=== PATIENT | male | born 1975 | race Two or more races ===

== ENCOUNTER → 2016-05-08 | Day surgery (SDC) | payer OTHER ==
[~2016-05-08] MED LIST: ACTOS PO; ASPIRIN EC81 M1 PO; ATARAX PO; ATIVAN0.5 MG PO; AZITHROMYCIN250 MG PO; BENZTROPINE MESY2 MG PO; BUDEPRION SR100 M1 PO; BUDEPRION SR100 MG PO; CINNAMON ALPHA1 EACH PO; CINNAMON PO; CLOZAPINE ODT100 MG PO; CLOZAPINE200 MG PO; COGENTIN2 MG PO; COLACE PO; COLCRYS0.6 M2 PO; COQ-1010 MG PO; COQ-1030 MG PO; CORICIDIN COUGH1 TAB PO; DEBROX OTIC DRO15 ML AD; FLEXERIL PO; FLOMAX0.4 M1 PO; FLONASE 0.05% N16 G1; GLUCOTROL PO; GLYCOPYRROLATE2 MG PO; HALDOL PO; IBUPROFEN800 MG PO; INDOMETHACIN25 MG PO; KEFLEX500 MG PO; LINZESS145 MCG PO; LIPITOR20 MG PO; LIPITOR40 MG PO; LISINOPRIL10 MG PO; LISINOPRIL2.5 MG PO; LISINOPRIL5 MG PO; LORAZEPAM0.5 MG PO; LORAZEPAM1 MG PO; MEN'S ONE DAILY1 TA1 PO; METFORMIN PO; MILK THISTLE200 M1 PO; MILK THISTLE500 MG PO; MULTI VITAMIN1 EACH PO; MULTIPLE VITAMI1 T13 PO; NAPROSYN500 MG PO; NAPROXEN250 MG PO; PREDNISONE10 MG PO; PRILOSEC PO; PRINIVIL40 MG PO; PROAIR HFA8.5 GM IH; RAPAFLO8 MG PO; TANSULOSIN PO; TOPAMAX50 MG PO; TRAMADOL HCL50 M1 PO; TUMS500 M1 PO; VITAMIN D35000 UNIT PO; WELLBUTRIN-SR100 M1 PO; WELLBUTRIN100 MG PO
--- NOTE | ~2016-05-08 | ECT ---
Unit #: [id number] #: [id number] Patient: TERESA PETERSON [id number] [place] [address] [id number] O MR#: [id number] NAME: TERESA PETERSON ROOM: Age: 40 Sex: M Admission Date: 05/08/2016 : 1975 Discharge Date: Attending Physician: Mark Davis M.D. Primary Care Physician: Higinio Woo M.D. ECT NOTE DATE OF TREATMENT 05/08/2016 TREATMENT NUMBER 113, maintenance TREATMENT MODALITY Unilateral ECT ANESTHESIA Glycopyrrolate: 0.2 mg Brevital: 150 mg Succinylcholine: 100 mg TREATMENT PARAMETERS Charge: 288 millicoulombs Pulse Width: 1.0 milliseconds Frequency: 40 Hertz Duration: 4.5 seconds Current: 800 milliamps TREATMENT DELIVERED Energy: 64.4 joules Impedance: 268 ohms Charge: 288 millicoulombs SEIZURE MEASURES OMS: 30 seconds EE seconds COMPLICATIONS None. SUMMARY The patient had a good seizure with both OMS and EEG measures. Depression and psychosis seem to be pretty well controlled continuing his ECT's at every 2 weeks and will bring him back in 2 weeks for his next maintenance ECT. DIFFERENTIAL DIAGNOSES AXIS I: F20.0. AXIS II: Deferred. AXIS III: Nothing acute. Unit #: [id number] #: [id number] Patient: TERESA PETERSON Dictated by... Kareem Ordoñez/kishor TD: 05/08/2016 18:29 JOB #: [id number] ECT NOTE X Mark Davis MD <ELECTRONICALLY SIGNED> 11/03/16 1702 X ECT
== END | disposition home or self-care (01) ==
LOC: CSUR 07:57
DX: F20.0 Paranoid schizophrenia (principal); F32.9 Major depressive disorder, single episode, unspecified; K21.9 Gastro-esophageal reflux disease without esophagitis; E11.9 Type 2 diabetes mellitus without complications; Z79.84 Long term (current) use of oral hypoglycemic drugs; M54.5 Low back pain; K31.84 Gastroparesis; G47.30 Sleep apnea, unspecified; N40.0 Benign prostatic hyperplasia without lower urinary tract symptoms; E66.9 Obesity, unspecified; Z68.38 Body mass index [BMI] 38.0-38.9, adult; F17.200 Nicotine dependence, unspecified, uncomplicated; Z87.09 Personal history of other diseases of the respiratory system; Z88.2 Allergy status to sulfonamides
CPT/HCPCS: 82947; 90870

== ENCOUNTER → 2016-05-22 | Day surgery (SDC) | payer OTHER ==
--- NOTE | ~2016-05-22 | ECT ---
Unit #: [id number] #: [id number] Patient: TERESA PETERSON [id number] [place] [address] [id number] O MR#: [id number] NAME: TERESA PETERSON ROOM: Age: 40 Sex: M Admission Date: 05/22/2016 : 1975 Discharge Date: Attending Physician: Mark Davis M.D. Primary Care Physician: Higinio Woo M.D. ECT NOTE DATE OF TREATMENT 05/22/2016 TREATMENT NUMBER 114, maintenance TREATMENT MODALITY Unilateral ECT ANESTHESIA Glycopyrrolate: 0.2 mg Brevital: 150 mg Succinylcholine: 100 mg TREATMENT PARAMETERS Charge: 288 millicoulombs Pulse Width: 1.0 milliseconds Frequency: 40 Hertz Duration: 4.5 seconds Current: 800 milliamps TREATMENT DELIVERED Energy: 58.3 joules Impedance: 242 ohms Charge: 288 millicoulombs SEIZURE MEASURES OMS: 31 seconds EE seconds COMPLICATIONS None. SUMMARY The patient had a good seizure with OMS and EEG measures. Depression and psychosis seem to be pretty well maintained and managed with his maintenance ECT's being every 2 weeks. I will continue his next ECT in 2 weeks. DIFFERENTIAL DIAGNOSES AXIS I: F20.0. AXIS II: Deferred. AXIS III: Nothing acute. Unit #: [id number] #: [id number] Patient: TERESA PETERSON Dictated by... Kareem Ordoñez/kishor TD: 05/23/2016 14:04 JOB #: [id number] ECT NOTE X Mark Davis MD <ELECTRONICALLY SIGNED> 11/03/16 1702 X ECT
== END | disposition home or self-care (01) ==
LOC: CSUR 08:19
DX: F20.0 Paranoid schizophrenia (principal); F32.9 Major depressive disorder, single episode, unspecified; K21.9 Gastro-esophageal reflux disease without esophagitis; E11.9 Type 2 diabetes mellitus without complications; Z79.84 Long term (current) use of oral hypoglycemic drugs; K31.89 Other diseases of stomach and duodenum; I10 Essential (primary) hypertension; F17.200 Nicotine dependence, unspecified, uncomplicated; M54.5 Low back pain; E66.9 Obesity, unspecified; Z79.899 Other long term (current) drug therapy; Z88.2 Allergy status to sulfonamides
CPT/HCPCS: 82947; 90870

== ENCOUNTER → 2016-06-05 | Day surgery (SDC) | payer OTHER ==
--- NOTE | ~2016-06-05 | ECT ---
Unit #: [id number] #: [id number] Patient: TERESA PETERSON [id number] [place] [address] [id number] O MR#: [id number] NAME: TERESA PETERSON ROOM: Age: 40 Sex: M Admission Date: 06/05/2016 : 1975 Discharge Date: Attending Physician: Mark Davis M.D. Primary Care Physician: No Primary Care Physician ECT NOTE DATE OF TREATMENT 06/05/2016 TREATMENT NUMBER 115, maintenance. TREATMENT MODALITY Unilateral ECT. ANESTHESIA Glycopyrrolate: 0.2 mg Brevital: 150 mg Succinylcholine: 100 mg TREATMENT PARAMETERS Charge: 288 millicoulombs Pulse Width: 1.0 milliseconds Frequency: 40 Hertz Duration: 4.5 seconds Current: 800 milliamps TREATMENT DELIVERED Energy: 68.1 joules Impedance: 287 ohms Charge: 288 millicoulombs SEIZURE MEASURES OMS: 32 seconds EE seconds COMPLICATIONS None. SUMMARY The patient had a good seizure with OMS and EEG measures. Psychosis and depression seem to be pretty well maintained and controlled with his ECT treatments being every two weeks. We will continue his schedule at that rate and he will follow up with me in my outpatient clinic for medication management. DIFFERENTIAL DIAGNOSES AXIS I: F20.0 Unit #: [id number] #: [id number] Patient: TERESA PETERSON AXIS II: Deferred. AXIS III: Nothing acute. Dictated by... Mark Davis M.D. NAHEED/gavino TD: 06/05/2016 13:57 JOB #: [id number] ECT NOTE Page 1 of 1 X Mark Davis MD <ELECTRONICALLY SIGNED> 11/03/16 1702 X ECT
== END | disposition home or self-care (01) ==
LOC: CSUR 07:47
DX: F20.0 Paranoid schizophrenia (principal); K21.9 Gastro-esophageal reflux disease without esophagitis; I10 Essential (primary) hypertension; E66.9 Obesity, unspecified; Z68.37 Body mass index [BMI] 37.0-37.9, adult; N40.0 Benign prostatic hyperplasia without lower urinary tract symptoms; E11.9 Type 2 diabetes mellitus without complications; Z79.84 Long term (current) use of oral hypoglycemic drugs; K31.84 Gastroparesis; F17.200 Nicotine dependence, unspecified, uncomplicated; Z79.899 Other long term (current) drug therapy; M54.5 Low back pain; Z87.09 Personal history of other diseases of the respiratory system; Z88.2 Allergy status to sulfonamides
CPT/HCPCS: 82947; 90870; J0330

== ENCOUNTER → 2016-06-19 | Day surgery (SDC) | payer OTHER, SELFPAY ==
--- NOTE | ~2016-06-19 | ECT ---
Unit #: [id number] #: [id number] Patient: TERESA PETERSON [id number] [place] [address] [id number] O MR#: [id number] NAME: TERESA PETERSON ROOM: Age: 40 Sex: M Admission Date: 06/19/2016 : 1975 Discharge Date: Attending Physician: Mark Davis M.D. Primary Care Physician: Primary Care Physician No ECT NOTE DATE OF TREATMENT 06/19/2016 TREATMENT NUMBER 116, maintenance TREATMENT MODALITY Unilateral ECT ANESTHESIA Glycopyrrolate: 0.2 mg Brevital: 150 mg Succinylcholine: 100 mg TREATMENT PARAMETERS Charge: 288 millicoulombs Pulse Width: 1.0 milliseconds Frequency: 40 Hertz Duration: 4.5 seconds Current: 800 milliamps TREATMENT DELIVERED Energy: 64.9 joules Impedance: 274 ohms Charge: 288 millicoulombs SEIZURE MEASURES OMS: 24 seconds EE seconds COMPLICATIONS None. SUMMARY The patient had a good seizure with OMS and EEG measures. Psychosis continues to be pretty well managed with his maintenance ECTs every 2 weeks. I will bring him back in 2 weeks for his next maintenance ECT. DIFFERENTIAL DIAGNOSES AXIS I: F20.0. AXIS II: Deferred. AXIS III: Nothing acute. Unit #: [id number] #: [id number] Patient: TERESA PETERSON Dictated by... Kareem Ordoñez/kishor TD: 06/19/2016 20:10 JOB #: [id number] ECT NOTE Page 1 of 1 X Mark Davis MD <ELECTRONICALLY SIGNED> 10/12/16 1207 X ECT
== END | disposition home or self-care (01) ==
LOC: CSUR 07:25
DX: F20.0 Paranoid schizophrenia (principal); F32.9 Major depressive disorder, single episode, unspecified; K21.9 Gastro-esophageal reflux disease without esophagitis; E66.9 Obesity, unspecified; N40.0 Benign prostatic hyperplasia without lower urinary tract symptoms; E11.9 Type 2 diabetes mellitus without complications; Z79.84 Long term (current) use of oral hypoglycemic drugs; K31.84 Gastroparesis; Z68.37 Body mass index [BMI] 37.0-37.9, adult; G89.29 Other chronic pain; M54.9 Dorsalgia, unspecified; I10 Essential (primary) hypertension; G47.30 Sleep apnea, unspecified; Z79.1 Long term (current) use of non-steroidal anti-inflammatories (NSAID); Z98.890 Other specified postprocedural states; Z88.2 Allergy status to sulfonamides; Z87.09 Personal history of other diseases of the respiratory system
CPT/HCPCS: 90870; J0330; J2405

== ENCOUNTER → 2016-07-06 | Day surgery (SDC) | payer OTHER | END | disposition home or self-care (01) | LOC: CSUR 09:48 | DX: F20.0 Paranoid schizophrenia (principal); N40.0 Benign prostatic hyperplasia without lower urinary tract symptoms; K21.9 Gastro-esophageal reflux disease without esophagitis; M54.5 Low back pain; E66.9 Obesity, unspecified; E11.9 Type 2 diabetes mellitus without complications; G89.29 Other chronic pain; I10 Essential (primary) hypertension; E78.5 Hyperlipidemia, unspecified; Z79.02 Long term (current) use of antithrombotics/antiplatelets; Z87.19 Personal history of other diseases of the digestive system; Z88.2 Allergy status to sulfonamides; Z79.899 Other long term (current) drug therapy | CPT/HCPCS: 82947; 90870; J0330 ==

== ENCOUNTER → 2016-07-20 | Day surgery (SDC) | payer OTHER ==
--- NOTE | ~2016-07-20 | ECT ---
Unit #: [id number] #: [id number] Patient: TERESA PETERSON [id number] [place] [address] [id number] P MR#: [id number] NAME: TERESA PETERSON ROOM: Age: 40 Sex: M Admission Date: 07/20/2016 : 1975 Discharge Date: Attending Physician: Mark Davis M.D. Primary Care Physician: Primary Care Physician No ECT NOTE DATE OF TREATMENT 07/06/2016 TREATMENT NUMBER 117, maintenance TREATMENT MODALITY Unilateral ECT. ANESTHESIA Glycopyrrolate: 0.2 mg. Brevital: 150 mg. Succinylcholine: 100 mg. TREATMENT PARAMETERS Charge: 288 millicoulombs Pulse Width: 1.0 milliseconds Frequency: 40 Hertz Duration: 4.5 seconds Current: 800 milliamps TREATMENT DELIVERED Energy: 60.5 joules Impedance: 225 ohms Charge: 288 millicoulombs SEIZURE MEASURES OMS: 47 seconds EE seconds COMPLICATIONS None. SUMMARY The patient had a good seizure with both OMS and EEG measures. He has been tolerating his maintenance ECTs pretty well. I will give him his next maintenance ECT in the next 2 weeks. DIFFERENTIAL DIAGNOSES AXIS I: F20.0 AXIS II: Deferred. AXIS III: Nothing acute. Unit #: [id number] #: [id number] Patient: TERESA PETERSON Dictated by... Kareem Ordoñez/maria de jesus TD: 07/07/2016 07:52 JOB #: [id number] ECT NOTE Page 1 of 1 X Mark Davis MD <ELECTRONICALLY SIGNED> 10/12/16 1207 X ECT
--- NOTE | ~2016-07-20 | ECT ---
Unit #: [id number] #: [id number] Patient: TERESA PETERSON [id number] [place] [address] [id number] O MR#: [id number] NAME: TERESA PETERSON ROOM: Age: 40 Sex: M Admission Date: 07/20/2016 : 1975 Discharge Date: Attending Physician: Mark Davis M.D. Primary Care Physician: Primary Care Physician No ECT NOTE DATE OF TREATMENT 07/20/2016 TREATMENT NUMBER One hundred eighteen (maintenance) TREATMENT MODALITY Unilateral ECT ANESTHESIA Glycopyrrolate: 0.2 mg Brevital: 150 mg Succinylcholine: 100 mg TREATMENT PARAMETERS Charge: 288 millicoulombs Pulse Width: 1.0 milliseconds Frequency: 40 Hertz Duration: 4.5 seconds Current: 800 milliamps TREATMENT DELIVERED Energy: 71.8 joules Impedance: 299 ohms Charge: 288 millicoulombs SEIZURE MEASURES OMS: 23 seconds EE seconds COMPLICATIONS None SUMMARY The patient had a good seizure with OMS and EEG measures. His maintenance ECT schedule continues to do pretty well every two weeks. No side effects are noted. I will continue to follow him in my outpatient clinic for his medication management and we will bring him back in the next two weeks for his next maintenance ECT. DIFFERENTIAL DIAGNOSES AXIS I: F20.0. AXIS II: Deferred. Unit #: [id number] #: [id number] Patient: TERESA PETERSON AXIS III: Nothing acute. AXIS IV: AXIS V: Dictated by... Mark Davis M.D. NAHEED/peña TD: 07/21/2016 06:16 JOB #: [id number] ECT NOTE Page 1 of 1 X Mark Davis MD <ELECTRONICALLY SIGNED> 10/12/16 1207 X ECT
== END | disposition home or self-care (01) ==
LOC: CSUR 07:49
DX: F20.0 Paranoid schizophrenia (principal); K21.9 Gastro-esophageal reflux disease without esophagitis; N40.0 Benign prostatic hyperplasia without lower urinary tract symptoms; K31.84 Gastroparesis; F32.9 Major depressive disorder, single episode, unspecified; F20.9 Schizophrenia, unspecified; E11.9 Type 2 diabetes mellitus without complications; Z79.84 Long term (current) use of oral hypoglycemic drugs; G47.30 Sleep apnea, unspecified; M54.5 Low back pain; F17.200 Nicotine dependence, unspecified, uncomplicated; E66.9 Obesity, unspecified; Z68.38 Body mass index [BMI] 38.0-38.9, adult; Z79.1 Long term (current) use of non-steroidal anti-inflammatories (NSAID); Z79.899 Other long term (current) drug therapy; Z87.09 Personal history of other diseases of the respiratory system; Z88.2 Allergy status to sulfonamides
CPT/HCPCS: 82947; 90870; J0330

== ENCOUNTER → 2016-08-03 | Day surgery (SDC) | payer OTHER ==
--- NOTE | ~2016-08-03 | ECT ---
Unit #: [id number] #: [id number] Patient: TERESA PETERSON [id number] [address] [id number] O MR#: [id number] NAME: TERESA PETERSON ROOM: Age: 40 Sex: M Admission Date: 08/03/2016 : 1975 Discharge Date: Attending Physician: Mark Davis M.D. Primary Care Physician: Primary Care Physician No ECT NOTE DATE OF TREATMENT 08/03/2016 TREATMENT NUMBER 119 TREATMENT MODALITY Unilateral ECT. ANESTHESIA Glycopyrrolate: 0.2 mg Brevital: 130 mg Succinylcholine: 110 mg TREATMENT PARAMETERS Charge: 288 millicoulombs Pulse Width: 1.0 milliseconds Frequency: 40 Hertz Duration: 4.5 seconds Current: 800 milliamps TREATMENT DELIVERED Energy: 67.1 joules Impedance: 278 ohms Charge: 288 millicoulombs SEIZURE MEASURES OMS: 30 seconds EE seconds COMPLICATIONS None. SUMMARY The patient had a good seizure both with OMS and EEG measures. Depression and psychosis seem to be pretty well controlled with his maintenance ECTs every two weeks. I will bring him back in two weeks for his next maintenance ECT. DIFFERENTIAL DIAGNOSIS [place] I: F20.0 [place] II: Deferred. Unit #: [id number] #: [id number] Patient: TERESA PETERSON [place] III: Nothing acute Dictated by... Kareem Ordoñez/demetrius TD: 08/04/2016 04:50 JOB #: [id number] ECT NOTE Page 1 of 1 X Mark Davis MD <ELECTRONICALLY SIGNED> 10/12/16 1207 X ECT
== END | disposition home or self-care (01) ==
LOC: CSUR 08:20
DX: F20.0 Paranoid schizophrenia (principal); F32.9 Major depressive disorder, single episode, unspecified; K21.9 Gastro-esophageal reflux disease without esophagitis; N40.0 Benign prostatic hyperplasia without lower urinary tract symptoms; K31.84 Gastroparesis; M54.5 Low back pain; F17.200 Nicotine dependence, unspecified, uncomplicated; E11.9 Type 2 diabetes mellitus without complications; Z79.84 Long term (current) use of oral hypoglycemic drugs; G47.30 Sleep apnea, unspecified; Z91.14 Patient's other noncompliance with medication regimen; Z88.2 Allergy status to sulfonamides; Z87.09 Personal history of other diseases of the respiratory system
CPT/HCPCS: 82947; 90870; J0330

== ENCOUNTER → 2016-08-17 | Day surgery (SDC) | payer OTHER ==
--- NOTE | ~2016-08-17 | ECT ---
Unit #: [id number] #: [id number] Patient: TERESA PETERSON [id number] [place] [address] [id number] O MR#: [id number] NAME: TERESA PETERSON ROOM: Age: 40 Sex: M Admission Date: 08/17/2016 : 1975 Discharge Date: Attending Physician: Mark Davis M.D. Primary Care Physician: Primary Care Physician No ECT NOTE DATE OF TREATMENT 08/17/2016 TREATMENT NUMBER 120, maintenance TREATMENT MODALITY Unilateral ECT. ANESTHESIA Glycopyrrolate: 0.2 mg. Brevital: 150 mg. Succinylcholine: 100 mg. TREATMENT PARAMETERS Charge: 288 millicoulombs Pulse Width: 1.0 milliseconds Frequency: 40 Hertz Duration: 4.5 seconds Current: 800 milliamps TREATMENT DELIVERED Energy: 63.4 joules Impedance: 266 ohms Charge: 288 millicoulombs SEIZURE MEASURES OMS: 13 seconds EE seconds COMPLICATIONS None. SUMMARY The patient had a good seizure with OMS and EEG measures, and psychosis is pretty well maintained with his ECT treatments in every 2 weeks. I will continue his ECT treatments at the current schedule. DIFFERENTIAL DIAGNOSES AXIS I: F20.0 AXIS II: Deferred. AXIS III: Nothing acute. Unit #: [id number] #: [id number] Patient: TERESA PETERSON Dictated by... Kareem Ordoñez/maria de jesus TD: 08/18/2016 12:45 JOB #: [id number] ECT NOTE Page 1 of 1 X Mark Davis MD <ELECTRONICALLY SIGNED> 10/12/16 1207 X ECT
== END | disposition home or self-care (01) ==
LOC: CSUR 07:42
DX: F20.0 Paranoid schizophrenia (principal); I10 Essential (primary) hypertension; E78.5 Hyperlipidemia, unspecified; F17.210 Nicotine dependence, cigarettes, uncomplicated; E66.9 Obesity, unspecified; K21.9 Gastro-esophageal reflux disease without esophagitis; F32.9 Major depressive disorder, single episode, unspecified; E11.43 Type 2 diabetes mellitus with diabetic autonomic (poly)neuropathy; K31.84 Gastroparesis; Z68.38 Body mass index [BMI] 38.0-38.9, adult; Z88.2 Allergy status to sulfonamides; Z79.84 Long term (current) use of oral hypoglycemic drugs; Z79.899 Other long term (current) drug therapy; Z79.1 Long term (current) use of non-steroidal anti-inflammatories (NSAID); Z98.890 Other specified postprocedural states
CPT/HCPCS: 82947; 90870; J0330

== ENCOUNTER → 2016-08-31 | Day surgery (SDC) | payer OTHER ==
--- NOTE | ~2016-08-31 | ECT ---
Unit #: [id number] #: [id number] Patient: TERESA PETERSON [id number] [place] [address] [id number] O MR#: [id number] NAME: TERESA PETERSON ROOM: Age: 40 Sex: M Admission Date: 08/31/2016 : 1975 Discharge Date: Attending Physician: Mark Davis M.D. Primary Care Physician: No Primary Care Physician ECT NOTE DATE of TREATMENT 08/31/2016. TREATMENT NUMBER 121 maintenance MODE Unilateral ECT. ANESTHESIA Glycopyrrolate: 0.22 mg Brevital: 150 mg. Succinylcholine: 100 mg. TREATMENT PARAMETERS Charge: 360 millicoulombs. Pulse width: 1.0 msec. Frequency: 50 Hz. Duration: 4.5 seconds. Current: 800 milliamps. TREATMENT DELIVERED Energy: 66.7 joules. Impedance: 218 ohms. Charge: 360 millicoulombs. SEIZURE MEASURES OMS: 17 seconds. EE seconds. COMPLICATIONS None SUMMARY Patient had a good seizure with OMS and EEG measures. Depression and psychosis continue to be pretty well maintained with his ECT treatments every 2 weeks. I will bring him back in 2 weeks for next ECT treatment. DISCHARGE DIAGNOSIS AXIS I: F20.0. AXIS II: Deferred. AXIS III: Nothing acute Unit #: [id number] #: [id number] Patient: TERESA PETERSON Dictated by... Kareem Ordoñez/rome TD: 08/31/2016 13:21 JOB #: [id number] ECT NOTE Page 1 of 1 X Mark Davis MD <ELECTRONICALLY SIGNED> 10/12/16 1207 X ECT
== END | disposition home or self-care (01) ==
LOC: CSUR 08:00
DX: F20.0 Paranoid schizophrenia (principal); F32.9 Major depressive disorder, single episode, unspecified; K21.9 Gastro-esophageal reflux disease without esophagitis; N40.0 Benign prostatic hyperplasia without lower urinary tract symptoms; K31.84 Gastroparesis; E66.9 Obesity, unspecified; Z68.38 Body mass index [BMI] 38.0-38.9, adult; E11.9 Type 2 diabetes mellitus without complications; Z79.84 Long term (current) use of oral hypoglycemic drugs; I10 Essential (primary) hypertension; E78.5 Hyperlipidemia, unspecified; M54.5 Low back pain; F17.200 Nicotine dependence, unspecified, uncomplicated; Z79.899 Other long term (current) drug therapy; Z79.1 Long term (current) use of non-steroidal anti-inflammatories (NSAID); Z87.09 Personal history of other diseases of the respiratory system; Z88.2 Allergy status to sulfonamides
CPT/HCPCS: 82947; 90870; J0330

== ENCOUNTER → 2016-09-18 | Day surgery (SDC) | payer OTHER ==
--- NOTE | ~2016-09-18 | ECT ---
Unit #: [id number] #: [id number] Patient: TERESA PETERSON [id number] [address] [id number] O MR#: [id number] NAME: TERESA PETERSON ROOM: Age: 41 Sex: M Admission Date: 09/18/2016 : 1975 Discharge Date: Attending Physician: Mark Davis M.D. Primary Care Physician: Primary Care Physician No ECT NOTE DATE OF TREATMENT 09/18/2016 TREATMENT NUMBER 122 TREATMENT MODALITY Unilateral ECT ANESTHESIA Glycopyrrolate: 0.2 mg Brevital: 150 mg Succinylcholine: 100 mg TREATMENT PARAMETERS Charge: 360 millicoulombs Pulse Width: 1.0 milliseconds Frequency: 50 Hertz Duration: 4.5 seconds Current: 800 milliamps TREATMENT DELIVERED Energy: 80.1 joules Impedance: 263 ohms Charge: 360 millicoulombs SEIZURE MEASURES OMS: 29 seconds EE seconds COMPLICATIONS None SUMMARY The patient had a good seizure with OMS and EEG measures, his maintenance ECT scheduled at every two weeks has continued to be very effective for him, and we will continue his ECT in the next couple of weeks, and we will begin to seek out who he might be able to transfer his maintenance treatments to. DIFFERENTIAL DIAGNOSES AXIS I: F20.0. AXIS II: Deferred. Unit #: [id number] #: [id number] Patient: TERESA PETERSON AXIS III: Nothing acute. AXIS IV: AXIS V: Dictated by... Mark Davis M.D. NAHEED/peña TD: 09/18/2016 10:22 JOB #: [id number] ECT NOTE Page 1 of 1 X Mark Davis MD <ELECTRONICALLY SIGNED> 10/12/16 1207 X ECT
== END | disposition home or self-care (01) ==
LOC: CSUR 08:13
DX: F20.0 Paranoid schizophrenia (principal); N40.0 Benign prostatic hyperplasia without lower urinary tract symptoms; K31.84 Gastroparesis; M54.5 Low back pain; E11.9 Type 2 diabetes mellitus without complications; Z79.84 Long term (current) use of oral hypoglycemic drugs; E66.9 Obesity, unspecified; Z68.37 Body mass index [BMI] 37.0-37.9, adult; F17.200 Nicotine dependence, unspecified, uncomplicated; M54.9 Dorsalgia, unspecified; Z87.09 Personal history of other diseases of the respiratory system; Z98.890 Other specified postprocedural states; Z88.2 Allergy status to sulfonamides; Z79.899 Other long term (current) drug therapy
CPT/HCPCS: 82947; 90870; J0330

== ENCOUNTER → 2016-10-02 | Day surgery (SDC) | payer OTHER ==
--- NOTE | ~2016-10-02 | ECT ---
Unit #: [id number] #: [id number] Patient: TERESA PETERSON [id number] [place] [address] [id number] O MR#: [id number] NAME: TERESA PETERSON. ROOM: Age: 41 Sex: M Admission Date: 10/02/2016 : 1975 Discharge Date: Attending Physician: Mark Davis M.D. Primary Care Physician: Primary Care Physician No ECT NOTE DATE OF TREATMENT 10/02/2016 TREATMENT NUMBER 123, maintenance TREATMENT MODALITY Unilateral ECT. ANESTHESIA Glycopyrrolate: 0.2 mg. Brevital: 150 mg. Succinylcholine: 100 mg. TREATMENT PARAMETERS Charge: 360 millicoulombs Pulse Width: 1.0 milliseconds Frequency: 50 Hertz Duration: 4.5 seconds Current: 800 milliamps TREATMENT DELIVERED Energy: 84.2 joules Impedance: 280 ohms Charge: 360 millicoulombs SEIZURE MEASURES OMS: 13 seconds EE seconds COMPLICATIONS None. SUMMARY The patient had a good seizure with OMS and EEG measures. His psychosis and depression continued to do pretty well, keeping his maintenance ECTs every 2 weeks. I saw him in my office earlier this week, and he indicates to me that if the ECT treatments go beyond 2 weeks he does begin to have a psychosis again, starts talking about his voices and becomes more withdrawn, so we will continue him with his maintenance ECTs every 2 weeks. DIFFERENTIAL DIAGNOSES AXIS I: F20.0 Unit #: [id number] #: [id number] Patient: TERESA PETERSON AXIS II: Deferred. AXIS III: Nothing acute. Dictated by... Mark Davis M.D. NAHEED/maria de jesus TD: 10/03/2016 08:35 JOB #: [id number] ECT NOTE Page 1 of 1 X Mark Davis MD <ELECTRONICALLY SIGNED> 10/12/16 1207 X ECT
== END | disposition home or self-care (01) ==
LOC: CSUR 08:14
DX: F20.0 Paranoid schizophrenia (principal); F32.9 Major depressive disorder, single episode, unspecified; F41.9 Anxiety disorder, unspecified; K21.9 Gastro-esophageal reflux disease without esophagitis; I10 Essential (primary) hypertension; E11.9 Type 2 diabetes mellitus without complications; E66.9 Obesity, unspecified; N40.0 Benign prostatic hyperplasia without lower urinary tract symptoms; G47.33 Obstructive sleep apnea (adult) (pediatric); E87.6 Hypokalemia; Z79.899 Other long term (current) drug therapy; Z68.38 Body mass index [BMI] 38.0-38.9, adult; Z87.01 Personal history of pneumonia (recurrent); Z87.891 Personal history of nicotine dependence; Z90.49 Acquired absence of other specified parts of digestive tract; Z98.890 Other specified postprocedural states
CPT/HCPCS: 82947; 90870; J0330

== ENCOUNTER → 2016-10-16 | Day surgery (SDC) | payer OTHER ==
--- NOTE | ~2016-10-16 | ECT ---
Unit #: [id number] #: [id number] Patient: TERESA PETERSON [id number] [place] [address] [id number] O MR#: [id number] NAME: TERESA PETERSON ROOM: Age: 41 Sex: M Admission Date: 10/16/2016 : 1975 Discharge Date: Attending Physician: Mark Davis M.D. Primary Care Physician: Primary Care Physician No ECT NOTE DATE OF TREATMENT 10/16/2016 TREATMENT NUMBER 124, maintenance TREATMENT MODALITY Unilateral ECT. ANESTHESIA Glycopyrrolate: 0.2 mg. Brevital: 150 mg. Succinylcholine: 100 mg. TREATMENT PARAMETERS Charge: 360 millicoulombs Pulse Width: 1.0 milliseconds Frequency: 50 Hertz Duration: 4.5 seconds Current: 800 milliamps TREATMENT DELIVERED Energy: 80.0 joules Impedance: 259 ohms Charge: 360 millicoulombs SEIZURE MEASURES OMS: 15 seconds EE seconds COMPLICATIONS None. SUMMARY The patient had a good seizure with OMS and EEG measures. The maintenance ECTs every 2 weeks have done a very good job keeping his psychosis at bay. ECT treatments that are extended much beyond 2 weeks. It tend to reveal more of his psychosis. We will conclude his ECT treatments from this clinic, and we will be closing at the end of a week, and he will follow up with another psychiatrist. DIFFERENTIAL DIAGNOSES AXIS I: F20.0. Unit #: [id number] #: [id number] Patient: TERESA PETERSON AXIS II: Deferred. AXIS III: Nothing acute. Dictated by... Mark Davis M.D. NAHEED/maria de jesus TD: 10/16/2016 09:55 JOB #: [id number] ECT NOTE Page 1 of 1 X Mark Davis MD <ELECTRONICALLY SIGNED> 10/26/16 1706 X ECT
== END | disposition home or self-care (01) ==
LOC: CSUR 08:00
DX: F20.0 Paranoid schizophrenia (principal); N40.0 Benign prostatic hyperplasia without lower urinary tract symptoms; K21.9 Gastro-esophageal reflux disease without esophagitis; I10 Essential (primary) hypertension; E11.9 Type 2 diabetes mellitus without complications; F32.9 Major depressive disorder, single episode, unspecified; E66.9 Obesity, unspecified; F17.210 Nicotine dependence, cigarettes, uncomplicated; Z88.2 Allergy status to sulfonamides; Z68.38 Body mass index [BMI] 38.0-38.9, adult; Z79.899 Other long term (current) drug therapy; Z79.84 Long term (current) use of oral hypoglycemic drugs; Z98.890 Other specified postprocedural states
CPT/HCPCS: 90870; J0330